=== PATIENT | female | born 1975 | race Caucasian/White ===

== ENCOUNTER 2020-04-12 13:00 | Emergency (ER) | payer BC, SELFPAY ==
[~2020-04-12] VITALS: Ht 167.6 cm; Wt 96.6 kg
[2020-04-12 13:11] VITALS: BP 132/89; Ht 167.6 cm; Wt 96.6 kg
== END 2020-04-12 13:45 | disposition home or self-care (01) ==
LOC: ED 13:00
DX: U07.1 COVID-19 (principal)
CPT/HCPCS: U0003